=== PATIENT | male | born 1985 | race Caucasian/White ===

== ENCOUNTER 2021-12-18 15:09 | Emergency (ER) | payer OTHER ==
[~2021-12-18 15:09] MED LIST: PANTOPRAZOLE SO40 MG PO; PERCOCET 5/3251 TAB PO; PROVENTIL HFA6.7 GM INH
[2021-12-18 17:13] LABS: CORONAVIRUS 2019 SARS-COV-2 NEGATIVE (NEGATIVE); INFLUENZA A NAA NEGATIVE (NEGATIVE)
[2021-12-18] MEDS ORDERED: ONDANSETRON ODT4 MG PO (18:46)
[2021-12-18] MEDS ORDERED: VIBRAMYCIN100 MG PO (20:11)
[2021-12-18] MEDS ORDERED: VENTOLIN HFA IN18 GM INH (20:11)
[2021-12-18] MEDS ORDERED: MUCINEX DM ER1 EACH PO (20:11)
[2021-12-18] MEDS ORDERED: MEDROL 4MG DOSEP4 MG PO (20:11)
== END 2021-12-18 20:19 | disposition home or self-care (01) ==
LOC: FER 15:09
PROVIDERS: Nurse Practitioner Family
DX: J20.9 Acute bronchitis, unspecified (principal); F17.210 Nicotine dependence, cigarettes, uncomplicated; Z20.822 Contact with and (suspected) exposure to COVID-19; Z28.310 Unvaccinated for COVID-19
CPT/HCPCS: 99283; U0002